=== PATIENT | female | born 1990 | race Caucasian/White ===

== ENCOUNTER 2024-04-09 12:39 | Outpatient (AMB) | payer OTHER, SELFPAY ==
--- NOTE | 2024-04-09 12:48 | AM.OFFWIN_ITS ---
Intake Vital Signs 04/09/24 12:49 Height 5 ft 5 in Weight 127 lb 4 oz BMI 21.2 BP 108/66 Blood Pressure Location Rt brachial Position Sitting Respiration 13 Pulse 81 Pulse Source Pulse Oximeter Temp 98 F Temp Source Temporal Artery Scan Pulse Oximetry (%) 99 Oxygen Delivery Method Room Air Intake Visit Reasons: palliative senior np/ sore throat, cough Patient Tobacco Use Status: Never used Tobacco Supervisor Slate Splitting Required: No Accompanied by: Self / Same As Patient Allergies Seasonal Allergies Allergy (Intermediate, Verified 04/09/24 13:09) Watery Eye Medication List - Last Reconciled 04/09/24 by ORQUIDEA Coombs No Known Home Meds Do you need a note to return to daycare/school/sports/work: No HPI HPI Comments History of Present Illness Details Here today with c/o sore throat, feeling generally run down Exposed to with similar sx reports negative for strep + cough, elevated heart rate , painful s wallowing at home COVID test negative Used nyquil and allergy meds w/ little relief sx started 3 days ago, worse since onset Hx of SVT and PVC s/p PFO repair; denies chest pain PFSH Social History Patient Tobacco Use Status: Never used Tobacco Review of Systems Const All systems reviewed & are unremarkable except as noted in HPI and below Physical Exam Vital Signs: Last Vital Signs Temp 98 F 04/09/24 12:49 Pulse 81 04/09/24 12:49 Resp 13 04/09/24 12:49 BP 108/66 04/09/24 12:49 Pulse Ox 99 04/09/24 12:49 Oxygen Delivery Method Room Air 04/09/24 12:49 BMI result Body Mass Index 21.2 Const Other: awake alert NAD TM intact and clear bilat Pharynx clear. STREP negative. 2/6 systolic murmur, frequent PVC LS CTAB No edema BLE Neuros intact Results AMB Rapid Strep AMB Rapid Strep Negative Last Edit by ORQUIDEA Coombs on 4 19:36 Assessment & Plan Assessment & Plan (1) PVC (premature ventricular contraction): Code(s): I49.3 - Ventricular premature depolarization Plan: . (2) URI (upper respiratory infection): Code(s): J06.9 - Acute upper respiratory infection, unspecified Qualifiers: URI type: acute pharyngitis Pharyngitis/tonsillitis etiology: unspecified etiology Qualified Code(s): J02.9 - Acute pharyngitis, unspecified Plan: 30 min spent caring for this patient before,during and after. Orders: Orders SARS-CoV2/FLU/RSV Today R09.89 - Other specified symptoms and signs involving the circulatory and respiratory systems AMB Rapid Strep Screen Today Z13.9 - Encounter for screening, unspecified Patient Instructions: Viral swab obtained today, results pending at this time she will be called with + results only supportive care FU with PCP next week re: PVC Avoid stimulant and caffeine Coding Level of Care Code Est Pt Level 4 (46328) Diagnoses PVC (premature ventricular contraction) I49.3 Acute pharyngitis, unspecified etiology J02.9 URI type: acute pharyngitis Pharyngitis/tonsillitis etiology: unspecified etiology
[2024-04-09 12:49] VITALS: BP 108/66; PULSE 81; RESP 13; TEMP 36.6; O2SAT 99; BMI 21.2
== END 2024-04-09 13:24 | disposition home or self-care (01) ==
PROVIDERS: PCP Pediatrics; Visit Provider Nurse Practitioner Family
DX: I49.3 Ventricular premature depolarization (principal); J02.9 Acute pharyngitis, unspecified; Z13.9 Encounter for screening, unspecified
CPT/HCPCS: 87880; 99214

== ENCOUNTER 2024-04-09 12:39 | Outpatient (REF) | payer OTHER, SELFPAY ==
[2024-04-10 12:20] LABS: Influenza A PCR NEGATIVE (Negative); Influenza B PCR NEGATIVE (Negative); Resp Syncy Virus RNA Qual PCR NEGATIVE (Negative); SARS COV2 PCR INHOUSE NEGATIVE (Negative)
== END 2024-04-09 12:40 | disposition home or self-care (01) ==
LOC: HO.LNP 12:39
PROVIDERS: Visit Provider Nurse Practitioner Family
DX: R09.89 Other specified symptoms and signs involving the circulatory and respiratory systems (principal)
CPT/HCPCS: 0241U

== ENCOUNTER 2024-04-16 14:24 | Outpatient (AMB) | payer OTHER, SELFPAY ==
--- NOTE | 2024-04-16 14:30 | A.OFFPC_ITS ---
Vital Signs 04/16/24 14:34 Height 5 ft 5 in Weight 128 lb 4 oz BMI 21.3 BP 102/68 Blood Pressure Location Lt brachial Position Sitting Respiration 14 Pulse 90 Pulse Source Pulse Oximeter Temp 98.1 F Temp Source Oral Pulse Oximetry (%) 95 Oxygen Delivery Method Room Air Intake Visit Reasons: w/ Cinthia 30 min FU PVC and URI Intake Note: F/U on PVC and URI. Is last menstrual period known: Yes Last menstrual period: 03/30/24 Allergies Seasonal Allergies Allergy (Intermediate, Verified 04/16/24 14:30) Watery Eye Medication List - Last Reconciled 04/16/24 by Cinthia Velazquez PA-C No Known Home Meds Tobacco use date assessed: 04/16/24 Dental Screening Dental Screen Date: 04/16/24 Did you have a dental visit in the last 12 months?: Yes Did you have a dental problem in the last 6 months where you did not have access to dental care?: No Was dental information given to patient?: Patient has dentist HPI w/ Cinthia 30 min FU PVC and URI HPI Details Patient is a 33-year-old female who [facility]. She is transferring from [facility]. She was recently seen here in the walk-in clinic for a URI. She states that still has a sinus pain and pressure. Intermittent right ear discomfort. She was seen in urgent care about a week ago and diagnosed with a viral URI. She states that it has been about 10 days now and she thinks she has just not getting better. No fevers or chills. No cough. She was experiencing more frequent PVCs when she 1st started to get sick but this has since resolved. No PVCs since Saturday. CV: She has a significant past medical history of paroxysmal SVT and PVC s/p PFO repair; denies chest pain. She does still get episodes of SVT if she is too active. She does not drink caffeine. She states that she thinks that she is ready to discuss a cardiac ablation. She would like a referral to EP. Her last Holter monitor was a couple years ago. She states that her last echo was last year and normal. Psych: Her anxiety is currently a bit flared up because her dog is dealing with cancer. She would really like a sleep study and to see sleep medicine. She wonders if her lack of sleep triggers her SVT as well. She wears a ring that tells her sometimes she is only getting 23 minutes of REM sleep in the night. She is up frequently at night and sometimes has a hard time falling asleep and staying asleep. In the past she has tried trazodone and amitriptyline but did not like how they made her feel. She states that she is very sensitive to medications and does not really want to take anything strong but would like to sleep. [facility] Medical History (Updated 04/16/24 @ 15:23 by Cinthia Velazquez PA-C) Fatigue Insomnia PSVT (paroxysmal supraventricular tachycardia) Family History (Updated 04/16/24 @ 14:50 by SMA Samm) Father Substance abuse HTN (hypertension) High blood cholesterol Mother Asthma Maternal Grandmother Diabetes Brother Testicular cancer Social History Housing: House Patient Tobacco Use Status: Never used Tobacco e-Cigarette/Vaping Use: Never Used service: No Current occupational status: employed Current occupational exposures/hazards: No Cognitive needs: No Hearing needs: No Vision needs: No Female Reproductive History Menstrual Date of last menstrual period: 03/30/24 Questionnaire PHQ-9 Over the last 2 weeks, how often have you been bothered by any of the following problems? 1. Little interest or pleasure in doing things: nearly every day 2. Feeling down, depressed, or hopeless: more than half the days 3. Trouble falling or staying asleep, or sleeping too much: nearly every day 4. Feeling tired or having little energy: more than half the days 5. Poor appetite or overeating: nearly every day 6. Feeling bad about yourself - or that you are a failure or have let yourself or your family down: not at all 7. Trouble concentrating on things, such as reading the newspaper or watching television: nearly every day 8. Moving or speaking so slowly that other people could have noticed. Or the opposite - being so fidgety or restless that you have been moving around a lot more than usual: not at all 9. Thoughts that you would be better off or of hurting yourself in some way: not at all Total score: 16 20973 - PHQ-9 Billing: Yes Source: Developed by Drs. Shalom Russell, Mike Arredondo and colleagues, with an educational padilla from [employer]. Thrive Questionnaire Date Thrive assessed: 04/16/24 I am a: Patient What is your living situation today?: I have a steady place to live Within the past 12 months, did the food you bought not last and you didn't have the money to get more?: Never true Within the past 12 months, did you worry whether your food would run out before you got money to buy more?: Never true Do you have trouble paying for medicines?: No Do you have trouble getting transportation to medical appointments?: No Do you have trouble paying your heating and electricity bill?: No Do you have trouble taking care of your child, family member or friend?: No Do you have trouble with day-to-day activities such as bathing, preparing meals, shopping, managing finances, etc.?: No Are you currently unemployed and looking for a job?: No Are you interested in more education?: No Please select the resources that you would like help with: None THRIVE Score: 0 AUDIT C Alcohol Use Questionnaire (AUDIT-C) 1. How often do you have a drink containing alcohol?: Never Total Score: 0 RITA-7 AMB Questionnaire RITA-7 Date RITA - 7 assessed: 04/16/24 Feeling nervous, anxious, or on edge: 3 = Nearly every day Not being able to stop or control worryin = Nearly every day Worrying too much about different things: 3 = Nearly every day Trouble relaxin = More than half the days Being so restless that it is hard to sit still: 0 = Not at all Becoming easily annoyed or irritable: 3 = Nearly every day Feeling afraid as if something awful might happen: 3 = Nearly every day Total RITA-7 score (0-4 normal; 5-9 mild; 10-14 moderate; 15-21 severe): 17 Source: Developed by Drs. Shalom Russell, Mike Arredondo and colleagues, with an educational padilla from [employer]. RITA-7 Assessment Billing RITA-7 Assessment Tool: RITA-7 Assessment 33053 ACT Questionnaire In the past 4 weeks, how much of the time did your asthma keep you from getting as much done at work, school or at home?: None of the time During the past 4 weeks, how often have you had shortness of breath?: Once a day During the past 4 weeks, how often did your asthma symptoms wake you up at night or earlier than usual in the morning?: Not at all During the past 4 weeks, how often have you had to use your rescue inhaler or nebulizer medication?: 2-3 times a week How would you rate your asthma control during the past 4 weeks?: Somewhat controlled Score: 18 Physical exam (Primary Care) Vital Signs: Last Vital Signs Temp 98.1 F 04/16/24 14:34 Pulse 90 04/16/24 14:34 Resp 14 04/16/24 14:34 BP 102/68 04/16/24 14:34 Pulse Ox 95 04/16/24 14:34 Oxygen Delivery Method Room Air 04/16/24 14:34 BMI result Body Mass Index 21.3 Tobacco/Smoking Status: Tobacco use Status Tobacco use date assessed 04/16/24 04/16/24 14:40 Patient Tobacco Use Status Never used Tobacco 04/16/24 14:34 e-Cigarette/Vaping Use Never Used 04/16/24 14:34 PHQ-9: PHQ-9 Score PHQ-9: Total score 16 04/16/24 14:44 Thrive Assessment: Date of Thrive Assessment Date Thrive assessed 04/16/24 04/16/24 14:44 Const Orientation/consciousness: patient oriented x3 HENMT Other: The right TM is dome-shaped with a small air-fluid level. TM on left WNL. There is maxillary and frontal sinus tenderness present. Nasal mucosa erythematous and edematous. No nasal drainage. Posterior oropharynx WNL. Ears: hearing grossly normal bilaterally Neck Thyroid: Thyroid normal Lymphatic: no lymphadenopathy noted Resp Auscultation: clear to auscultation bilaterally Cardio Rate: regular rate Rhythm: regular rhythm Heart sounds: S1 normal heart sound present and S2 normal heart sound present GI Inspection: Yes normal to inspection Palpation (GI): Soft to palpation and Other GI palpation findings present (nontender, no cva tenderness) Auscultation: normoactive bowel sounds Rectal Exam - Female: deferred Skin General skin exam: no rashes or lesions noted Neuro General: patient oriented x3, gait normal and no focal motor deficits Assessment and Plan Assessment & Plan (1) PVC (premature ventricular contraction): Code(s): I49.3 - Ventricular premature depolarization Plan: Improved. (2) PSVT (paroxysmal supraventricular tachycardia): Code(s): I47.10 - Supraventricular tachycardia, unspecified Plan: Referral to EP. Longstanding history of this and does not tolerate medication. (3) Insomnia: Code(s): G47.00 - Insomnia, unspecified Qualifiers: Insomnia type: unspecified Qualified Code(s): G47.00 - Insomnia, unspecified Plan: We will try hydroxyzine. Referral to sleep Medicine. Labs ordered. (4) Fatigue: Code(s): R53.83 - Other fatigue Qualifiers: Fatigue type: chronic, unspecified Qualified Code(s): R53.82 - Chronic fatigue, unspecified Plan: Labs ordered. Likely related to lack of good sleep. Sleep hygiene reviewed. Plan Patient we will follow up in 3 months. Sooner if needed. Patient understands and agrees with the plan. Orders: Orders Comprehensive Dexter. Panel Fast Today G47.00 - Insomnia, unspecified, I47.10 - Supraventricular tachycardia, unspecified, I49.3 - Ventricular premature depolarization, R53.83 - Other fatigue Complete Blood Count Auto Diff Today G47.00 - Insomnia, unspecified, I47.10 - Supraventricular tachycardia, unspecified, I49.3 - Ventricular premature depolarization, R53.83 - Other fatigue Lipid Panel Today G47.00 - Insomnia, unspecified, I47.10 - Supraventricular tachycardia, unspecified, I49.3 - Ventricular premature depolarization, R53.83 - Other fatigue TSH reflex Free T4 Today G47.00 - Insomnia, unspecified, I47.10 - Supraventricular tachycardia, unspecified, I49.3 - Ventricular premature depolarization, R53.83 - Other fatigue IRON PROFILE Today G47.00 - Insomnia, unspecified, I47.10 - Supraventricular tachycardia, unspecified, I49.3 - Ventricular premature depolarization, R53.83 - Other fatigue Ferritin Today G47.00 - Insomnia, unspecified, I47.10 - Supraventricular tachycardia, unspecified, I49.3 - Ventricular premature depolarization, R53.83 - Other fatigue Referrals Cardiac Electrophysiology Referral I47.10 - Supraventricular tachycardia, unspecified, I49.3 - Ventricular premature depolarization Sleep Medicine Referral G47.00 - Insomnia, unspecified, I47.10 - Supraventricular tachycardia, unspecified, R53.83 - Other fatigue Medications: New amoxicillin-pot clavulanate 875-125 mg 1 tab PO Q12H 20 tabs 0RF hydroxyzine HCl 25 mg PO BEDTIME 30 tabs 2RF Coding Level of Care Code Est Pt Level 4 (63847) Complex EM visit Add On G2211 Diagnoses PVC (premature ventricular contraction) I49.3 PSVT (paroxysmal supraventricular tachycardia) I47.10 Insomnia, unspecified type G47.00 Insomnia type: unspecified Chronic fatigue R53.82 Fatigue type: chronic, unspecified Additional Codes RITA-7 Assessment Billing - RITA-7 Assessment Tool: RITA-7 Assessment 12857 ([id number])
[2024-04-16 14:34] VITALS: BP 102/68; PULSE 90; RESP 14; TEMP 36.7; O2SAT 95; BMI 21.3
== END 2024-04-16 15:15 | disposition home or self-care (01) ==
PROVIDERS: PCP Pediatrics; Visit Provider Physician Assistant
DX: I49.3 Ventricular premature depolarization (principal); I47.10 Supraventricular tachycardia, unspecified; G47.00 Insomnia, unspecified; R53.82 Chronic fatigue, unspecified
CPT/HCPCS: 99214; G2211

== ENCOUNTER 2024-08-13 15:23 | Outpatient (AMB) | payer OTHER, SELFPAY ==
--- NOTE | 2024-08-13 15:26 | A.OFFVIS_ITS ---
Vital Signs 08/13/24 15:27 Height 5 ft 5 in Weight 133 lb 2 oz BMI 22.2 BP 106/68 Blood Pressure Location Rt brachial Position Sitting Respiration 16 Pulse 87 Pulse Source Pulse Oximeter Pulse Oximetry (%) 98 Oxygen Delivery Method Room Air Intake Visit Reasons: INP- Insomia Intake Note: New pt presents to the office for consultation for insomnia. Manager Of Planning Required: No Allergies Seasonal Allergies Allergy (Intermediate, Verified 08/13/24 15:27) Watery Eye Medication List - Last Reconciled 08/13/24 by Kera Brantley MD magnesium oxide 250 mg PO DAILY HPI Comments Details: 33y/o female comes for sleep evaluation . Main complaints-excessive daytime sleepiness, difficulty sleeping at night worse in the past 10 years. she has h/o ADHD but does not like taking medications. Sleep questionnaire- Difficulty falling asleep-yes Difficulty staying asleep-sometimes Number of arousals-no Snoring-yno Witnessed apneas-no Gasping arousals-no Nocturia-no GERD-no Vivid dreams-yes- wakes up dreaming- sad or happy Acting out dreams -no Abnormal behavior in sleep-no ABnormal movements in sleep-when she is trying to fall asleep is very twitchy Morning headaches- Excessive daytime sleepiness-yes Daytime naps- 0-1 nap lasting 2 hrs restless legs- no Hallucinations- yes- intruder when she wakes up from a nap sleep paralysis- yes- wakes up and unable to move usually during naps Drop attacks- no Sleep study-no Sleep Hygiene- Sleep time- 11pm Wake time -8am( can sleep till noon) coffee/stimulant use-0-3 coffees Phone Electronics use-Tv at night Exercise- Mostly 9am Bedroom comfort- good SHe takes magnesium at bed time SHe has h/o depression and anxiety she had difficulty in high school - needed IEP but did Ok in college . Her father has sleep apnea and is on CPAP. COUNTS INCLUDE 234 BEDS AT THE [facility] Medical History (Updated 08/13/24 @ 15:57 by Kera Brantley MD) Hypnopompic hallucination Abnormal leg movement Sleep paralysis Hypersomnia Fatigue Insomnia PSVT (paroxysmal supraventricular tachycardia) Family History Father Substance abuse HTN (hypertension) High blood cholesterol Mother Asthma Maternal Grandmother Diabetes Brother Testicular cancer Social History Housing: House Patient Tobacco Use Status: Never used Tobacco e-Cigarette/Vaping Use: Never Used service: No Current occupational status: employed Current occupational exposures/hazards: No Cognitive needs: No Hearing needs: No Vision needs: No Physical Exam Vital Signs: Last Vital Signs Pulse 87 08/13/24 15:27 Resp 16 08/13/24 15:27 BP 106/68 08/13/24 15:27 Pulse Ox 98 08/13/24 15:27 Oxygen Delivery Method Room Air 08/13/24 15:27 BMI result Body Mass Index 22.2 Const General: cooperative, healthy appearing and comfortable Nutritional Appearance: average body habitus Orientation/consciousness: patient oriented x3 Eyes Pupils: Equal, round and reactive pupils present Neuro Other: mallampatti grade 4 General: patient oriented x3, gait normal, tone normal, moves all extremities and no focal motor deficits Cranial nerves: Yes Facial sensation intact/muscles of mastication intact, Yes Equal, round and reactive pupils present, Yes Bilaterally intact EOM present, Yes Nystagmus not present, Yes Normal facial strength present, Yes Midline tongue present, Yes Symmetric palate elevation present and Yes Ability to bilaterally elevate shoulders present Cognition (Neuro): normal cognition Gait exam (Neuro): Normal gait present Motor exam (neuro): 5/5 motor strength present throughout and Normal motor muscle tone present throughout Deep tendon reflexes (DTR's): Right triceps reflex intensity grade: 2+, Left triceps reflex intensity grade: 2+, Rt Biceps (C5, C6): 2+, Left biceps reflex intensity grade: 2+, Right brachioradialis reflex intensity grade: 2+, Left brachioradialis reflex intensity grade: 2+, Right patellar reflex intensity grade: 2+ and Left patellar reflex intensity grade: 2+ Coordination: [id number] test normal Assessment & Plan Assessment & Plan (1) Hypersomnia: Code(s): G47.10 - Hypersomnia, unspecified Category: Medical (2) Sleep paralysis: Code(s): G47.8 - Other sleep disorders Category: Medical (3) Abnormal leg movement: Code(s): G25.9 - Extrapyramidal and movement disorder, unspecified Category: Medical (4) Hypnopompic hallucination: Code(s): R44.2 - Other hallucinations Category: Medical Plan High suspicion for narcolepsy I will schedule her for PSG followed by MSLT Orders: Orders RT PSG in-lab sleep study Today G25.9 - Extrapyramidal and movement disorder, unspecified, G47.10 - Hypersomnia, unspecified, G47.8 - Other sleep disorders, R44.2 - Other hallucinations Vitamin B12 and Folate Today G47.10 - Hypersomnia, unspecified Vitamin D 25-OH (D2 and D3) Today G47.10 - Hypersomnia, unspecified RT sleep testing - MSLT Today G25.9 - Extrapyramidal and movement disorder, unspecified, G47.10 - Hypersomnia, unspecified, G47.8 - Other sleep disorders, R44.2 - Other hallucinations Coding Level of Care Code New Pt Level 4 (99652) Complex EM visit Add On G2211 Diagnoses Hypersomnia G47.10 Sleep paralysis G47.8 Abnormal leg movement G25.9 Hypnopompic hallucination R44.2 [place] Sleepiness Scale Questions Sitting and reading: high chance of dozing Watching TV: slight chance of dozing Sitting inactive in a theater, movie etc.: slight chance of dozing As a passenger in a car for an hour without break: high chance of dozing Lying down in the afternoon when circumstances permit: high chance of dozing Sitting and talking to someone: slight chance of dozing Sitting quietly after lunch without alcohol: high chance of dozing In a car, while stopped for a few minutes in the traffic: moderate chance of dozing ESS < 10: normal, ESS > 12: pathologic: 17
[2024-08-13 15:27] VITALS: BP 106/68; PULSE 87; RESP 16; O2SAT 98; BMI 22.2
== END 2024-08-13 16:02 | disposition home or self-care (01) ==
PROVIDERS: PCP Physician Assistant; Visit Provider Psychiatry & Neurology Neurology
DX: G47.10 Hypersomnia, unspecified (principal); G47.8 Other sleep disorders; G25.9 Extrapyramidal and movement disorder, unspecified; R44.2 Other hallucinations
CPT/HCPCS: 99204

== ENCOUNTER → 2024-08-13 15:23 | Outpatient (BNVA) | payer OTHER, SELFPAY | PROVIDERS: PCP Physician Assistant; Visit Provider Psychiatry & Neurology Neurology ==

== ENCOUNTER 2024-08-18 08:35 | Outpatient (REF) | payer OTHER, SELFPAY ==
[2024-08-18 10:47] LABS: MANUAL DIFF FLAG NO
[2024-08-18 11:00] LABS: Basophils Absolute Auto 0.1 X10*3/uL (0.0-0.2); Basophils Percent Auto 0.9 % (0-2); Eosinophils Absolute Auto 0.2 X10*3/uL (0.0-0.4); Eosinophils Percent Auto 4.2 % (0-4); Hematocrit 37.9 % (37.0-47.0); Hemoglobin 12.6 g/dl (12.0-16.0); Imm Gran Abs Auto 0.01 X10*3/uL (0.00-0.03); Imm Gran Pct Auto 0.2 % (0.0-0.4); Lymphocytes Percent Auto 37.1 % (20-40); Mean Corpuscular HGB Conc 33.2 g/dl (31.0-35.0); Mean Corpuscular Hemoglobin 30.4 pg (27.0-33.0); Mean Corpuscular Volume 91.5 fL (80.0-98.0); Mean Platelet Volume 9.7 fL (9.4-12.3); Monocytes Absolute Auto 0.4 X10*3/uL (0.1-1.2); Monocytes Percent Auto 7.4 % (2-11); Neutrophils Absolute Auto 2.7 x10*3/uL (2.0-8.3); Neutrophils Percent Auto 50.2 % (45-73); Platelet Count 281 X10*3/uL (160-400); Red Blood Count 4.14 X10*6/uL (4.20-5.50); Red Cell Distribution Width 12.7 % (11.0-16.0); White Blood Count 5.3 X10*3/uL (4.8-10.8)
[2024-08-18 11:35] LABS: Albumin Level 4.2 g/dL (3.5-5.0); Alkaline Phosphatase 38 U/L (39-117); Anion Gap 10 (12-20); Aspartate Amino Transferase 17 U/L (5-31); Bilirubin Total 0.6 mg/dL (0.0-1.0); Blood Urea Nitrogen 14 mg/dL (9-16); Calcium 8.9 mg/dL (8.4-10.2); Carbon Dioxide 23 mmol/L (22-29); Chloride 112 mmol/L (96-108); Cholesterol 142 mg/dL (<200); Estimated Glomerular Filt Rate > 60; Glucose Fasting 96 mg/dL (60-99); HDL Cholesterol 67 mg/dL (>40); Iron 98 mcg/dL (30-160); LDL Cholesterol Calculated 68 mg/dL (<100); Percent Iron Saturation 41 % (15-50); Potassium 3.9 mmol/L (3.3-5.1); Sodium 141 mmol/L (135-145); Total Iron Binding Capacity 237 mcg/dL (228-428); Triglycerides 38 mg/dL (<150); Unsaturated Iron Binding 139 ug/dL
[2024-08-18 11:46] LABS: Ferritin 83 ng/mL (10-122); Folate 7.4 ng/mL (> or = 4.0); TSH reflex Free T4 1.01 uIU/mL (0.32-4.0); Vitamin B12 460 pg/mL (200-900)
[2024-08-18 11:58] LABS: Alanine Aminotransferase 15 U/L (0-31)
[2024-08-23 15:28] LABS: Vitamin D 25-OH, D2 <4 ng/mL; Vitamin D 25-OH, D3 25 ng/mL; Vitamin D 25-OH, Total 25 ng/mL (30-100)
== END 2024-08-18 08:36 | disposition home or self-care (01) ==
LOC: HO.WFDLDS 08:35
PROVIDERS: Referring Provider Psychiatry & Neurology Neurology; Visit Provider Physician Assistant
DX: R53.83 Other fatigue (principal); G47.00 Insomnia, unspecified; I47.10 Supraventricular tachycardia, unspecified; I49.3 Ventricular premature depolarization; G47.10 Hypersomnia, unspecified
CPT/HCPCS: 36415; 80053; 80061; 82306; 82607; 82728; 82746; 83540; 84443; 85025

== ENCOUNTER → 2024-08-19 14:41 | Outpatient (BNVA) | payer OTHER, SELFPAY | PROVIDERS: PCP Physician Assistant; Visit Provider Physician Assistant ==

== ENCOUNTER 2024-08-31 12:36 | Outpatient (AMB) | payer OTHER, SELFPAY ==
--- NOTE | 2024-08-31 12:38 | MHC.OFFWIV ---
Intake Vital Signs 08/31/24 12:44 Height 5 ft 5 in Weight 131 lb 4 oz BMI 21.8 BP 114/60 Blood Pressure Location Rt brachial Position Sitting Respiration 16 Pulse 86 Pulse Source Pulse Oximeter Temp 97.6 F Temp Source Oral Pulse Oximetry (%) 97 Oxygen Delivery Method Room Air Intake Visit Reasons: Sinus infection Intake Note: patient here c/o sinus infection Patient Tobacco Use Status: Never used Tobacco Septic Tank Cleaner Required: No Is last menstrual period known: Yes Last menstrual period: 08/26/24 Post menopausal: No Patient : No Allergies No Known Allergies Allergy (Verified 08/31/24 12:46) Do you need a note to return to daycare/school/sports/work: Yes HPI HPI Comments History of Present Illness Details 34-year-old female presents with complaints pressure in her sinuses, frontal headache, nasal congestions, bilat ear congestion and non-productive cough (worse at night). Her symptoms have been ongoing for the past 5 days and progressively worsened. She had associated fever with highest temp of 101 and sore through that completely subsided. She took Ibuprofen yesterday. No dyspnea or chest pain. She notes positive sick contacts. [facility] Social History Patient Tobacco Use Status: Never used Tobacco Patient : No Female Reproductive History Menstrual Date of last menstrual period: 08/26/24 Review of Systems Const Details: Denies chills, Denies fatigue, Denies fever(s), Reports headache(s) and Denies weakness ENT Reports as per HPI Cardiac Denies chest pain, Denies claudication, Denies leg edema, Denies lightheadedness, Denies palpitations, Denies dyspnea, Denies dyspnea on exertion, Denies orthopnea and Denies other (Loss of consciousness) Resp Reports cough, Denies excessive phlegm production, Denies dyspnea, Denies dyspnea on exertion, Denies snoring and Denies wheezing Physical Exam Const Other: General: comfortable and no acute distress Orientation/consciousness: patient oriented x3 ENT Head is normocephalic Bilateral ear canal and TM are normal Nasal turbinates with significant erythema Oropharynx are pink and moist Maxillary sinus tenderness with palpation No auricular or cervical lymphadenopathy Chest Chest palpation & inspection: normal inspection of the chest Resp Auscultation: clear to auscultation bilaterally Cardiac Palpation: normal PMI Heart sounds: S1 normal heart sound present, S2 normal heart sound present, no gallops, no murmur, no rubs Assessment & Plan Assessment & Plan (1) Viral upper respiratory illness: Code(s): J06.9 - Acute upper respiratory infection, unspecified Plan: Maxillary sinus tenderness with palpation. Nasal turbinates with significant erythema Likely viral illness though possibly allergies Superimposed bacterial infection is also likely Viral illness There is no antibiotic medication for viruses.? They must run their course.? Most average 5-7 days but 7-10 days is not uncommon and up to 14 days is still possible.? A cough is often the last symptom to resolve and this can last for weeks in some cases. Rest Hydrate well -? Drink plenty of fluids.? Especially water. Tylenol or ibuprofen for muscle aches, headache, fever/discomfort Z-Binu as prescribed Cannot rule out COVID-19/RSV/Flu infection Nasal swab acquired and will be sent to the lab Return for new or worsening symptoms Verbalized understanding and agreed with treatment plan. (2) Sinus infection: Code(s): J32.9 - Chronic sinusitis, unspecified Plan: Plan as above Orders: Orders SARS-CoV2/FLU/RSV Today J06.9 - Acute upper respiratory infection, unspecified, J32.9 - Chronic sinusitis, unspecified Coding Level of Care Code New Pt Level 3 (55754) Diagnoses Viral upper respiratory illness J06.9 Sinus infection J32.9
[2024-08-31 12:44] VITALS: BP 114/60; PULSE 86; RESP 16; TEMP 36.4; O2SAT 97; BMI 21.8
== END 2024-08-31 13:10 | disposition home or self-care (01) ==
PROVIDERS: PCP Physician Assistant; Visit Provider Nurse Practitioner Family
DX: J06.9 Acute upper respiratory infection, unspecified (principal); J32.9 Chronic sinusitis, unspecified

== ENCOUNTER 2024-08-31 12:36 | Outpatient (REF) | payer OTHER, SELFPAY ==
[2024-08-31 15:34] LABS: Influenza A PCR NEGATIVE (Negative); Influenza B PCR NEGATIVE (Negative); Resp Syncy Virus RNA Qual PCR NEGATIVE (Negative); SARS COV2 PCR INHOUSE NEGATIVE (Negative)
== END 2024-08-31 12:37 | disposition home or self-care (01) ==
LOC: HO.LAB 12:36
PROVIDERS: Nurse Practitioner Family; PCP Physician Assistant
DX: J06.9 Acute upper respiratory infection, unspecified (principal); J32.9 Chronic sinusitis, unspecified
CPT/HCPCS: 0241U

== ENCOUNTER 2025-02-08 13:49 | Outpatient (AMB) | payer OTHER, SELFPAY ==
--- NOTE | 2025-02-08 13:52 | A.OFFPC_ITS ---
Vital Signs 02/08/25 13:59 Height 5 ft 5 in Weight 125 lb 6 oz BMI 20.9 BP 100/60 Blood Pressure Location Rt brachial Position Sitting Respiration 16 Pulse 80 Pulse Source Pulse Oximeter Temp 98.1 F Temp Source Temporal Artery Scan Pulse Oximetry (%) 96 Oxygen Delivery Method Room Air Intake Visit Reasons: Fatigue, exp to mono Intake Note: patient here c/o feeling fatigue and she was exposed to mono Reservations Sales Supervisor Required: No Is last menstrual period known: Yes Last menstrual period: 01/27/25 Post menopausal: No Patient : No Allergies Seasonal Allergies Allergy (Intermediate, Verified 02/08/25 14:06) Watery Eye Medication List - Last Reconciled 02/08/25 by David Ríos CNP albuterol sulfate 90 mcg/actuation (Ventolin HFA) 2 puffs inhalation .Q4 hours PRN fluticasone propionate 220 mcg/actuation 1 puff inhalation BID magnesium glycinate 200 mg PO DAILY Tobacco use date assessed: 02/08/25 Dental Screening Dental Screen Date: 02/08/25 Did you have a dental visit in the last 12 months?: Yes Did you have a dental problem in the last 6 months where you did not have access to dental care?: No Was dental information given to patient?: Patient has dentist HPI HPI Comments History of Present Illness Details 34-year-old female presents with complai nts of sever fatigue, generalized body aches, and postnasal drip which have been ongoing for a week. Her stepdaughter recently tested positive for mono. Her vitamin D level was slightly low in August. She was prescribed vitamin D3 50 mcg which was not filled by the pharmacy due to health plan denial. She has been taking multivitamins that has vitamin D. She requests lab for mono even though she is educated that it is possible to experience mono symptoms again, although rare, however, it is unlikely to test positive twice. [facility] Medical History (Updated 09/01/24 @ 11:44 by Ruth Coe) Hypnopompic hallucination Abnormal leg movement Sleep paralysis Hypersomnia Fatigue Insomnia PSVT (paroxysmal supraventricular tachycardia) Family History Father Substance abuse HTN (hypertension) High blood cholesterol Mother Asthma Maternal Grandmother Diabetes Brother Testicular cancer Social History (System 09/01/24 @ 11:44 by Ruth Coe) Housing: House Patient Tobacco Use Status: Never used Tobacco e-Cigarette/Vaping Use: Never Used Second Hand Smoke Exposure: No service: No Current occupational status: employed Current occupational exposures/hazards: No Cognitive needs: No Hearing needs: No Vision needs: No Female Reproductive History Menstrual Date of last menstrual period: 01/27/25 Questionnaire PHQ-9 Over the last 2 weeks, how often have you been bothered by any of the following problems? 1. Little interest or pleasure in doing things: several days 2. Feeling down, depressed, or hopeless: not at all 3. Trouble falling or staying asleep, or sleeping too much: several days 4. Feeling tired or having little energy: several days 5. Poor appetite or overeating: several days 6. Feeling bad about yourself - or that you are a failure or have let yourself or your family down: not at all 7. Trouble concentrating on things, such as reading the newspaper or watching television: nearly every day 8. Moving or speaking so slowly that other people could have noticed. Or the opposite - being so fidgety or restless that you have been moving around a lot more than usual: not at all 9. Thoughts that you would be better off or of hurting yourself in some way: not at all Total score: 7 Source: Developed by Drs. Shalom Russell, Modesta Vargas, Mike Brito and colleagues, with an educational padilla from [employer]. Thrive Questionnaire Date Thrive assessed: 04/16/24 I am a: Patient What is your living situation today?: I have a steady place to live Within the past 12 months, did the food you bought not last and you didn't have the money to get more?: Never true Within the past 12 months, did you worry whether your food would run out before you got money to buy more?: Never true Do you have trouble paying for medicines?: No Do you have trouble getting transportation to medical appointments?: No Do you have trouble paying your heating and electricity bill?: No Do you have trouble taking care of your child, family member or friend?: No Do you have trouble with day-to-day activities such as bathing, preparing meals, shopping, managing finances, etc.?: No Are you currently unemployed and looking for a job?: No Are you interested in more education?: No Please select the resources that you would like help with: None Currently or been in a relationship where the following occur: No concerns reported THRIVE Score: 0 AUDIT C Alcohol Use Questionnaire (AUDIT-C) 1. How often do you have a drink containing alcohol?: Never Total Score: 0 RITA-7 AMB Questionnaire RITA-7 Date RITA - 7 assessed: 04/16/24 Feeling nervous, anxious, or on edge: 0 = Not at all Not being able to stop or control worryin = Not at all Worrying too much about different things: 0 = Not at all Trouble relaxin = Not at all Being so restless that it is hard to sit still: 0 = Not at all Becoming easily annoyed or irritable: 0 = Not at all Feeling afraid as if something awful might happen: 0 = Not at all Total RITA-7 score (0-4 normal; 5-9 mild; 10-14 moderate; 15-21 severe): 0 Source: Developed by Drs. Shalom Russell, Modesta Vargas, Mike Brito and colleagues, with an educational padilla from [employer]. Review of Systems Const Details: Const Denies chills, Reports fatigue, Denies fever(s), Denies headache(s) and Denies weakness ENT Denies dizziness and Denies headache(s) Card Denies chest pain, Denies lightheadedness, Denies dyspnea and Denies other (Palpitations) Resp Denies cough, Denies dyspnea, Denies wheezing and Denies other ( shortness of breath) GI Denies abdominal pain, Denies melena, Denies hematochezia, Denies change in bowel habits, Denies dyspepsia and Denies nausea Denies hematuria and Denies dysuria Musc Denies abnormal gait, Denies myalgias, Denies arthralgias, Denies numbness and Denies tingling Skin/Breast Denies rash, Denies unusual bruising and Denies wounds Neuro Denies abnormal gait, Denies dizziness, Denies headache(s), Denies memory loss, Denies numbness, Denies Sensory deficit (Neuro), Denies tingling and Denies weakness Psych Denies anxiety, Denies depression, Denies memory loss Endo Denies cold intolerance, Reports fatigue, Denies heat intolerance, Denies polydipsia and Denies polyuria Aller/Immun Denies wheezing Physical exam (Primary Care) Vital Signs: Last Vital Signs Temp 98.1 F 02/08/25 13:59 Pulse 80 02/08/25 13:59 Resp 16 02/08/25 13:59 BP 100/60 02/08/25 13:59 Pulse Ox 96 02/08/25 13:59 Oxygen Delivery Method Room Air 02/08/25 13:59 BMI result Body Mass Index 20.9 Tobacco/Smoking Status: Tobacco use Status Tobacco use date assessed 02/08/25 02/08/25 14:02 Patient Tobacco Use Status Never used Tobacco 02/08/25 13:54 e-Cigarette/Vaping Use Never Used 02/08/25 13:54 PHQ-9: PHQ-9 Score PHQ-9: Total score 7 02/08/25 13:54 Thrive Assessment: Date of Thrive Assessment Date Thrive assessed 04/16/24 02/08/25 13:54 Currently or been in a relationship where the following occur: No concerns reported Const Other: General: no acute distress and well developed Nutritional Appearance: well nourished Orientation/consciousness: patient oriented x3 HENMT Head is normocephalic Bilateral ear canal and TM are normal Nasal turbinates and oropharynx are pink and moist Sinuses are nontender with palpation No auricular or cervical lymphadenopathy Eyes General: appearance normal, both eyes and all related structures Pupils: Equal, round and reactive pupils present EOM: EOMs intact bilaterally Resp Effort & Inspection: normal respiratory effort Auscultation: clear to auscultation bilaterally Cardio Rate: regular rate Rhythm: regular rhythm Heart sounds: S1 normal heart sound present, S2 normal heart sound present, no gallops, no murmurs and no rubs GI Palpation (GI): No Abdominal aortic bruit present, Soft to palpation, nontender, No hepatosplenomegaly present and No Rebound tenderness present Auscultation: normal bowel sounds General: Yes no CVA tenderness Back/Spine/Pelvis Back: no CVA tenderness Cervical Spine: cervical ROM normal and No Cervical spine tenderness Thoracic/Lumbar Spine: thoraco-lumbar ROM normal, No pain with thoraco-lumbar ROM, No thoracic spinal tenderness and No lumbar spinal tenderness Extrem General: Yes normal to inspection, No edema and No calf tenderness Skin General: warm and dry. Normal skin color. Normal skin turgor Neuro General: patient oriented x3, gait normal and no focal neuro deficit Cranial nerves: Yes Equal, round and reactive pupils present Cognition (Neuro): normal cognition Gait exam (Neuro): Normal gait present Sensory Exam: No Sensory deficit (Neuro) Psych Appearance: grossly normal Affect: normal affect Attitude: cooperative Thought process: Normal thought process present Coding Level of Care Code Est Pt Level 3 (70756) Diagnoses Chronic fatigue R53.82 Fatigue type: chronic, unspecified Assessment & Plan Assessment & Plan (1) Fatigue: Code(s): R53.83 - Other fatigue Category: Medical Qualifiers: Fatigue type: chronic, unspecified Qualified Code(s): R53.82 - Chronic fatigue, unspecified Plan: Patient reports severe fatigue, generalized body aches, and postnasal drip which have been ongoing for a week. Positive mono contact Likely viral illness though possibly allergies Vitamin-D deficiency, anemia, and thyroid disorder also possible No exam evidence of bacterial infection Viral illness There is no antibiotic medication for viruses.? They must run their course.? Most average 5-7 days but 7-10 days is not uncommon and up to 14 days is still possible.? A cough is often the last symptom to resolve and this can last for weeks in some cases. Rest Hydrate well -? Drink plenty of fluids.? Especially water. Tylenol or ibuprofen for muscle aches, headache, fever/discomfort Cannot rule out COVID-19/RSV/Flu infection Nasal swab acquired and will be sent to the lab CBC, vitamin-D, and TSH labs ordered [place] lab ordered as requested Return for new or worsening symptoms Verbalized understanding and agreed with treatment plan. Orders: Orders Complete Blood Count Auto Diff Today R53.82 - Chronic fatigue, unspecified SARS-CoV2/FLU/RSV Today R53.82 - Chronic fatigue, unspecified Monotest Today R53.82 - Chronic fatigue, unspecified Vitamin D 25-OH Total Today R53.82 - Chronic fatigue, unspecified TSH reflex Free T4 Today R53.82 - Chronic fatigue, unspecified
[2025-02-08 13:59] VITALS: BP 100/60; PULSE 80; RESP 16; TEMP 36.7; O2SAT 96; BMI 20.9
--- OUTSIDE RECORDS SUMMARY | 2025-02-08 15:32 | XMS_ITS | Patient Health Record ---
Author Organization [employer] Address [address] [address] Support Name Relationship Address Phone INA BINGHAM Guarantor Unknown [phone] Reason For Referral No Information Medications Medication SIG (Take, Route, Frequency, Duration) Notes Start Date End Date Status Loestrin 11/30 (21) 1 MG 1 ORAL daily for -3 Frandy-MJ 2010 Active Plan Of Treatment No Information
--- OUTSIDE RECORDS SUMMARY | 2025-02-08 15:32 | XMS_ITS | Clinical Summary ---
Author Organization [facility] [facility] ity Address [address] [place] [address] Care Team Providers Care Word Processor Technician Name Role Phone Cinthia Velazquez Primary Care Provider [phone] Encounters Date Type Department Care Team Description 01/30/2025 Telephone [facility] [address] [place] [address] Cinthia Velazquez PA Referral ( Attempt to reach pt, no response. Aek) from Last 3 Months Social History Tobacco Use Types Packs/Day Years Used Date Smoking Tobacco: Never Assessed Comments Unknown Sex and Gender Information Value Date Recorded Sex Assigned at Not on file Legal Sex Female 11:40 AM EDT Gender Identity Not on file Sexual Orientation Not on file Plan of Treatment Health Maintenance Due Date Last Done Comments DTaP,Tdap,and Td Vaccines (1 - Tdap) 2008 Hepatitis B Vaccines (1 of 3 - 19+ 3-dose series) 2008 Cervical Cancer Screening: P ap Smear 2010 COVID-19 Vaccine (2023-2 5 season) 2024 Influenza Vaccine (#1) 2024 Depression Screening 08/24/2024 HIV Screening 08/24/2024 Hepatitis C Screening 08/24/2024 Social Influencers of Health Screening 08/24/2024 HIB Vaccines Aged Out No longer eligi ble based on patient's age to complete this topic HPV Vaccines Aged Out No longer eligi ble based on patient's age to complete this topic Hepatitis A Vaccines Aged Out No long er eligible based on patient's age to complete this topic IPV Vaccines Aged Out No longer eligi ble based on patient's age to complete this topic MMR Vaccines Aged Out No longer eligi ble based on patient's age to complete this topic Meningococcal ACWY Vaccine Aged Out N o longer eligible based on patient's age to complete this topic Meningococcal B Vacine Aged Out No lo nger eligible based on patient's age to complete this topic Pneumococcal Vaccine: Pediat rics (0 to 5 Years) and At-Risk Patients (6 to 64 Years) Aged Out No longer eligible b ased on patient's age to complete this topic RSV Immunization Patients Un prakash 20 months Aged Out No longer eligible b ased on patient's age to complete this topic Varicella Vaccines Aged Out No longer eligible based on patient's age to complete this topic Care Teams Word Processor Technician Relationship Specialty Start Date End Date Cinthia Velazquez PA [address] [place] [id number] PCP - General 04/25/24
== END 2025-02-08 14:24 | disposition home or self-care (01) ==
LOC: HO.HMCFM 13:49
PROVIDERS: PCP Physician Assistant; Visit Provider Nurse Practitioner Family
DX: R53.82 Chronic fatigue, unspecified (principal)

== ENCOUNTER 2025-02-08 13:49 | Outpatient (REF) | payer OTHER, SELFPAY ==
--- OUTSIDE RECORDS SUMMARY | 2025-02-08 16:16 | XMS_ITS | Clinical Summary ---
Author Organization [employer] [facility] ity Address [address] [place] [address] Care Team Providers Care Licensed Certified Orthotist Name Role Phone Cinthia Velazquez Primary Care Provider [phone] Encounters Date Type Department Care Team Description 01/30/2025 Telephone [facility] [address] [facility] [address] [place] [address] Cinthia Velazquez PA Referral ( [...] age to complete this topic Care Teams Licensed Certified Orthotist Relationship Specialty Start Date End Date Cinthia Velazquez PA [address] [place] [id number] PCP - General 04/25/24
[2025-02-08 18:59] LABS: Influenza A PCR NEGATIVE (Negative); Influenza B PCR NEGATIVE (Negative); Resp Syncy Virus RNA Qual PCR NEGATIVE (Negative); SARS COV2 PCR INHOUSE NEGATIVE (Negative)
== END 2025-02-08 13:50 | disposition home or self-care (01) ==
LOC: HO.LAB 13:49
PROVIDERS: PCP Physician Assistant; Visit Provider Nurse Practitioner Family
DX: R53.82 Chronic fatigue, unspecified (principal)
CPT/HCPCS: 0241U; 96127

== ENCOUNTER 2025-02-08 14:29 | Outpatient (REF) | payer OTHER, SELFPAY ==
[2025-02-08 17:56] LABS: MANUAL DIFF FLAG NO
[2025-02-08 18:17] LABS: Basophils Absolute Auto 0.1 X10*3/uL (0.0-0.2); Basophils Percent Auto 1.3 % (0-2); Eosinophils Absolute Auto 0.2 X10*3/uL (0.0-0.4); Eosinophils Percent Auto 2.1 % (0-4); Hematocrit 37.6 % (37.0-47.0); Hemoglobin 12.4 g/dl (12.0-16.0); Imm Gran Abs Auto 0.03 X10*3/uL (0.00-0.03); Imm Gran Pct Auto 0.4 % (0.0-0.4); Mean Corpuscular Hemoglobin 30.8 pg (27.0-33.0); Mean Corpuscular Volume 93.3 fL (80.0-98.0); Mean Platelet Volume 9.7 fL (9.4-12.3); Monocytes Absolute Auto 0.3 X10*3/uL (0.1-1.2); Monocytes Percent Auto 4.3 % (2-11); Neutrophils Absolute Auto 4.6 x10*3/uL (2.0-8.3); Neutrophils Percent Auto 63.9 % (45-73); Platelet Count 273 X10*3/uL (160-400); Red Blood Count 4.03 X10*6/uL (4.20-5.50); Red Cell Distribution Width 12.6 % (11.0-16.0); White Blood Count 7.2 X10*3/uL (4.8-10.8)
[2025-02-08 18:53] LABS: Monotest Negative (Negative)
== END 2025-02-08 14:30 | disposition home or self-care (01) ==
LOC: HO.WFDLDS 14:29
PROVIDERS: Visit Provider Nurse Practitioner Family
DX: R53.82 Chronic fatigue, unspecified (principal)
CPT/HCPCS: 36415; 82306; 84443; 85025; 86308

== ENCOUNTER 2025-05-27 09:20 | Outpatient (AMB) | payer BC, SELFPAY ==
--- NOTE | 2025-05-27 09:24 | A.OFFPC_ITS ---
Vital Signs 05/27/25 09:27 Height 5 ft 5 in Weight 125 lb 6 oz BMI 20.9 BP 92/64 Blood Pressure Location Lt brachial Position Sitting Respiration 12 Pulse 78 Pulse Source Pulse Oximeter Pulse Oximetry (%) 98 Oxygen Delivery Method Room Air Intake Visit Reasons: med check Intake Note: Medication follow up. Disucuss going on a medication for ADHD besides Adderall. Medication to heip with plane flights. Glass Breaker Required: No Allergies Seasonal Allergies Allergy (Intermediate, Verified 05/27/25 09:25) Watery Eye Medication List - Last Reconciled 05/27/25 by Cinthia Velazquez PA-C albuterol sulfate 90 mcg/actuation (Ventolin HFA) 2 puffs inhalation .Q4 hours PRN magnesium glycinate 200 mg PO DAILY Tobacco use date assessed: 02/08/25 Dental Screening Dental Screen Date: 02/08/25 HPI med check HPI Details Pt is a 34 y/o female who presents today for a follow up. She has a significant past medical history of PSVT, anxiety, depression and ADHD. CV: She has a significant past medical history of paroxysmal SVT and PVC s/p PFO repair; denies chest pain. Psych: She states that in the past while on Adderall she felt like she would feel tired after the Adderall and would like to try something instead of Adderall. She just started a new drop in his having a hard time concentrating. She is using short-acting Adderall as needed that she has left over. In the past we tried to get Vyvanse covered but her previous health insurance would not cover this. She is also flying and has a fear of this. She is requesting a short acting anti anxiety medication. In the past she was on clonazepam as needed for anxiety. She has always tolerated this well. [facility] Medical History (Updated 05/27/25 @ 09:53 by Cinthia Velazquez PA-C) Hypnopompic hallucination Abnormal leg movement Sleep paralysis Hypersomnia Fatigue Insomnia PSVT (paroxysmal supraventricular tachycardia) Family History Father Substance abuse HTN (hypertension) High blood cholesterol Mother Asthma Maternal Grandmother Diabetes Brother Testicular cancer Social History (System 09/01/24 @ 11:44 by Ruth Coe) Housing: House Patient Tobacco Use Status: Never used Tobacco e-Cigarette/Vaping Use: Never Used Second Hand Smoke Exposure: No service: No Current occupational status: employed Current occupational exposures/hazards: No Cognitive needs: No Hearing needs: No Vision needs: No Questionnaire Thrive Questionnaire Date Thrive assessed: 02/08/25 I am a: Patient What is your living situation today?: I have a steady place to live Within the past 12 months, did the food you bought not last and you didn't have the money to get more?: Never true Within the past 12 months, did you worry whether your food would run out before you got money to buy more?: Never true Do you have trouble paying for medicines?: No Do you have trouble getting transportation to medical appointments?: No Do you have trouble paying your heating and electricity bill?: No Do you have trouble taking care of your child, family member or friend?: No Do you have trouble with day-to-day activities such as bathing, preparing meals, shopping, managing finances, etc.?: No Are you currently unemployed and looking for a job?: No Are you interested in more education?: No Please select the resources that you would like help with: None Currently or been in a relationship where the following occur: No concerns reported THRIVE Score: 0 RITA-7 AMB Questionnaire RITA-7 Date RITA - 7 assessed: 04/16/24 Source: Developed by Drs. Shalom Russell, Modesta Vargas, Mike Brito and colleagues, with an educational padilla from [employer]. Physical exam (Primary Care) Tobacco/Smoking Status: Tobacco use Status Tobacco use date assessed 02/08/25 05/26/25 15:27 Patient Tobacco Use Status Never used Tobacco 05/26/25 15:27 e-Cigarette/Vaping Use Never Used 05/26/25 15:27 Thrive Assessment: Date of Thrive Assessment Date Thrive assessed 02/08/25 05/27/25 09:21 Currently or been in a relationship where the following occur: No concerns reported Const Orientation/consciousness: patient oriented x3 HENMT Ears: hearing grossly normal bilaterally Neck Thyroid: Thyroid normal Lymphatic: no lymphadenopathy noted Resp Auscultation: clear to auscultation bilaterally Cardio Rate: regular rate Rhythm: regular rhythm Heart sounds: S1 normal heart sound present and S2 normal heart sound present GI Inspection: Yes normal to inspection Palpation (GI): Soft to palpation and Other GI palpation findings present (nontender, no cva tenderness) Auscultation: normoactive bowel sounds Rectal Exam - Female: deferred Skin General skin exam: no rashes or lesions noted Neuro General: patient oriented x3, gait normal and no focal motor deficits Results Reviewed Results Reviewed: Laboratory Tests 08/18/24 02/08/25 08:37 14:31 WBC 7.2 RBC 4.03 L Hgb 12.4 Hct 37.6 Plt Count 273 Creatinine 0.85 Estimated GFR > 60 Fasting Glucose 96 AST 17 ALT 15 Triglycerides 38 Cholesterol 142 LDL Cholesterol, Calc 68 HDL Cholesterol 67 Coding Level of Care Code Est Pt Level 4 (37016) Complex EM visit Add On G2211 Diagnoses ADHD F90.9 Fear of flying F40.243 Assessment & Plan Assessment & Plan (1) ADHD: Code(s): F90.9 - Attention-deficit hyperactivity disorder, unspecified type Category: Medical Plan: We will try Vyvanse. Discussed risks and benefits and adverse effects of this medication. She will follow up in a few months to be reassessed. Sooner if needed. (2) Fear of flying: Code(s): F40.243 - Fear of flying Category: Medical Plan: One prescription of lorazepam was provided today. She does have a lot of travel with her new job and she will use this very sparingly. Discussed risks, benefits and adverse effects of this medication including sedation, dependence, addiction etc.. Medications: New lisdexamfetamine (Vyvanse) Partial Fill upon patient request. 30 mg PO QAM 30 caps 0RF lorazepam (Ativan) 0.5 mg PO BID PRN 30 tabs 0RF anxiety 30 days
[2025-05-27 09:27] VITALS: BP 92/64; PULSE 78; RESP 12; O2SAT 98; BMI 20.9
--- OUTSIDE RECORDS SUMMARY | 2025-05-27 09:38 | XMS_ITS | Patient Health Record ---
Author Organization [facility] Address [address] [address] Support Name Relationship Address Phone INA BINGHAM Guarantor Unknown [phone] Reason For Referral No Information Medications Medication SIG (Take, Route, Frequency, Duration) Notes Start Date End Date Status Loestrin 11/30 (21) 1 MG 1 ORAL daily; Duration: -3 Frandy-MJ 10/03/2011 Active Plan Of Treatment No Information
--- OUTSIDE RECORDS SUMMARY | 2025-05-27 09:38 | XMS_ITS | Clinical Summary ---
Author Organization [facility] ity Address [address] [place] [address] Care Team Providers Care Senior Recruitment Consultant Name Role Phone Cinthia Velazquez Primary Care Provider [phone] Social History Tobacco Use Types Packs/Day Years [...] 2010 COVID-19 Vaccine (2023-2 5 season) 2024 Depression Screening 08/24/2024 HIV Screening 08/24/2024 Hepatitis C Screening 08/24/2024 Social Influencers of Health Screening 08/24/2024 Influenza Vaccine (#1) 2025 HIB Vaccines Aged Out No longer eligi [...] age to complete this topic Meningococcal B Vaccine Aged Out No l onger eligible based on patient's age to complete this topic Pneumococcal Vaccine: Pediat rics (0 to 5 Years) and At-Risk Patients (6 to 49 Years) Aged Out No longer eligible b ased on patient's age to complete this topic RSV Immunization Patients Un prakash 20 months Aged Out No longer eligible b ased on patient's age to complete this topic Varicella Vaccines Aged Out No longer eligible based on patient's age to complete this topic Care Teams Senior Recruitment Consultant Relationship Specialty Start Date End Date Cinthia Velazquez PA [address] [place] [id number] PCP - General 04/25/24
== END 2025-05-27 09:57 | disposition home or self-care (01) ==
LOC: HO.HMCFM 09:21
PROVIDERS: PCP Physician Assistant; Visit Provider Physician Assistant
DX: F90.9 Attention-deficit hyperactivity disorder, unspecified type (principal); F40.243 Fear of flying

== ENCOUNTER 2025-09-10 14:42 | Outpatient (AMB) | payer BC, SELFPAY ==
--- NOTE | 2025-09-10 14:44 | A.OFFPC_ITS ---
Vital Signs 09/10/25 14:48 Height 5 ft 5 in Weight 123 lb 6 oz BMI 20.5 BP 101/68 Blood Pressure Location Rt brachial Position Sitting Respiration 12 Pulse 58 Pulse Source Pulse Oximeter Temp 97.2 F Temp Source Oral Pulse Oximetry (%) 99 Oxygen Delivery Method Room Air Intake Visit Reasons: persistent cough Intake Note: Patient c/o dry persistent cough and have a metal taste in her mouth. Research Methodologist Required: No Allergies Seasonal Allergies Allergy (Intermediate, Verified 09/10/25 15:02) Watery Eye Medication List - Last Reconciled 09/10/25 by Nadya Roldan, DIRECTOR [employer]- albuterol sulfate 90 mcg/actuation (Ventolin HFA) 2 puffs inhalation .Q4 hours PRN lisdexamfetamine (Vyvanse) 30 mg PO QAM lorazepam (Ativan) 0.5 mg PO BID PRN 30 days magnesium glycinate 200 mg PO DAILY Tobacco use date assessed: 09/10/25 Dental Screening Dental Screen Date: 09/10/25 Did you have a dental visit in the last 12 months?: Yes Did you have a dental problem in the last 6 months where you did not have access to dental care?: No Was dental information given to patient?: Patient has dentist HPI HPI Comments History of Present Illness Details Chief Complaint The patient is a 35-year-old female presenting with a persistent cough and post- tussive phlegm. History The patient is a 35-year-old female presenting with a cough. Acute Cough: - The patient developed a cough followin g a sinus infection that began approximately three weeks ago, for which she was treated with amoxicillin at a walk-in clinic. - Her symptoms initially improved, but a fter air travel, she felt she was back at [facility], though without facial pressure. - The cough is described as very dry but is also productive of phlegm, is worse at night, and is triggered by deep breaths, causing her to breathe shallowly. - She reports chest heaviness and a cons tant urge to cough, which is similar to her symptoms when she had pneumonia two years ago. - A nurse practitioner colleague fabio paredes auscultated her lungs and heard no fluid, subsequently providing her with a combivent inhaler. - The patient reports feeling lightheade d after using the inhaler and experiences a metallic taste with coughing. - She has been taking Robitussin without much effect and NyQuil to help with sleep, along with her regular allergy medications. - She reports significant fatigue but baez s continued going to the gym. - She notes that her symptoms are not re lated to her history of SVT and denies palpitations. Cerumen Impaction: - The patient reports a sensation of hav ing stuff in her ears which does not resolve with cleaning, more so on the R Past Medical History - Pneumonia two years ago - Supraventricular tachycardia (SVT) - Heart murmur - Allergies - Sinus infection three weeks prior, holly ated with amoxicillin Review of Systems - General: Reports significant fatigue. Denies fever since last Saturday. - Respiratory: Reports a persistent, beatriz y dry cough that is also productive of phlegm. Reports chest heaviness and an urge to cough. Reports shallow breathing to avoid triggering the cough, which is worse at night and with deep inspiration. - Cardiovascular: Denies palpitations or other cardiac symptoms. - ENT: Reports a sensation of fullness i n the ears that does not clear with cleaning. Reports a metallic taste associated with coughing. Denies facial pressure. - Neurological: Reports feeling lighthea ded after using her inhaler. Physical Exam General: Awake, alert. No apparent distress Eyes: Sclera and conjunctiva clear bilaterally Nose: Nares patent, turbinates within normal limits, no sinus tenderness with palpation bilaterally Ears: Tympanic membranes intact and clear on the left, right ear with wax obstructing view of eardrum Throat: Moist mucosa membrane, pharynx within normal limits Cardiovascular: Regular rate and rhythm Respiratory: Clear to auscultation bilaterally, no wheezing, crackles, or decreased sounds. Occassional dry cough w/o distress. Medical Decision Making The patient is a 35-year-old female presenting with a persistent, productive cough that began after a sinus infection three weeks ago and worsened after air travel. Her symptoms, including chest heaviness and a constant urge to cough, are concerning to her due to a history of pneumonia, but she denies any symptoms related to her history of SVT. Physical examination of the lungs is unremarkable, with clear breath sounds and no wheezes or crackles. The clinical picture is most consistent with a post-viral cough or acute viral bronchitis, possibly from a new viral pathogen acquired during her travels, as many such as enterovirus and rhinovirus are currently circulating. Given the likely viral etiology, antibiotics are not indicated. The plan is to manage her symptoms to improve comfort and sleep. She will continue the combination budesonide/albuterol inhaler for bronchial inflammation, with education that the associated lightheadedness is a known side effect and to use it in a safe setting. As mnmk-hak-rfbcful guaifenesin has not been effective, a prescription for benzonatate (Tessalon) will be provided for cough suppression during the day, which can be used in conjunction with NyQuil at night. Additionally, examination revealed cerumen impaction in the right ear, for which an in-office ear lavage was performed to allow for proper visualization of the tympanic membrane. Plan 1. Acute Cough - The patient's presentation is consiste nt with a post-viral cough or viral bronchitis, given the clear lung exam and history following a sinus infection. - Antibiotics are not indicated due to t he likely viral etiology. - Recommended to continue the albuterol/ budesonide combination inhaler for bronchial inflammation, with counseling on the potential side effect of lightheadedness and advice to use it in a safe environment. - Prescribed benzonatate (Tessalon) to e taken up to three times daily for cough suppression. - A refill for benzonatate was also prov ided. - The patient may continue using NyQuil at night to aid with sleep. 2. Cerumen Impaction, Right Ear - Examination revealed the right ear can al was occluded by cerumen, preventing visualization of the tympanic membrane. - A right ear lavage was performed in e office to clear the obstruction. Patient Instructions - Continue using your inhaler. Be aware that it may make you feel lightheaded, so use it in a place where you can sit down if needed. - A prescription for a non-drowsy cough medication, Tessalon, has been sent to your pharmacy. You can take this up to three times per day. - Do not take Tessalon at the same time as other cough medicines like DayQuil. - It is okay to continue taking NyQuil a t night to help you sleep. - Your prescription was sent to the [facility] in [place]. Consent The patient provided verbal consent for a right ear lavage to be performed in the office. Patient was informed and verbally consented to the use of an ambient scribe for clinic note documentation during this visit. [facility] Medical History (Updated 05/27/25 @ 09:53 by Cinthia Velazquez PA-C) Abnormal leg movement Fatigue Hypersomnia Hypnopompic hallucination Insomnia PSVT (paroxysmal supraventricular tachycardia) Sleep paralysis Family History Father Substance abuse HTN (hypertension) High blood cholesterol Mother Asthma Maternal Grandmother Diabetes Brother Testicular cancer Social History (System 09/01/24 @ 11:44 by Ruth Coe) Housing: House Patient Tobacco Use Status: Never used Tobacco e-Cigarette/Vaping Use: Never Used Second Hand Smoke Exposure: No service: No Current occupational status: employed Current occupational exposures/hazards: No Cognitive needs: No Hearing needs: No Vision needs: No Questionnaire Thrive Questionnaire Date Thrive assessed: 02/08/25 I am a: Patient What is your living situation today?: I have a steady place to live Within the past 12 months, did the food you bought not last and you didn't have the money to get more?: Never true Within the past 12 months, did you worry whether your food would run out before you got money to buy more?: Never true Do you have trouble paying for medicines?: No Do you have trouble getting transportation to medical appointments?: No Do you have trouble paying your heating and electricity bill?: No Do you have trouble taking care of your child, family member or friend?: No Do you have trouble with day-to-day activities such as bathing, preparing meals, shopping, managing finances, etc.?: No Are you currently unemployed and looking for a job?: No Are you interested in more education?: No Please select the resources that you would like help with: None Currently or been in a relationship where the following occur: No concerns reported THRIVE Score: 0 AUDIT C Alcohol Use Questionnaire (AUDIT-C) 2. How many drinks containing alcohol do you have on a typical day when you are drinking?: 1 or 2 3. How often do you have six or more drinks on one occasion?: Never Total Score: 0 RITA-7 AMB Questionnaire RITA-7 Date RITA - 7 assessed: 04/16/24 Source: Developed by Drs. Shalom Russell, ModestaMike Lowery and colleagues, with an educational padilla from [employer]. Physical exam (Primary Care) Vital Signs: Last Vital Signs Temp 97.2 F 09/10/25 14:48 Pulse 58 09/10/25 14:48 Resp 12 09/10/25 14:48 BP 101/68 09/10/25 14:48 Pulse Ox 99 09/10/25 14:48 Oxygen Delivery Method Room Air 09/10/25 14:48 BMI result Body Mass Index 20.5 Tobacco/Smoking Status: Tobacco use Status Tobacco use date assessed 09/10/25 09/10/25 14:50 Patient Tobacco Use Status Never used Tobacco 09/10/25 14:50 e-Cigarette/Vaping Use Never Used 09/10/25 14:50 Thrive Assessment: Date of Thrive Assessment Date Thrive assessed 02/08/25 09/10/25 14:50 Currently or been in a relationship where the following occur: No concerns reported Office Procedures Cerumen Removal From which ear canal was the cerumen removed: right Removal: irrigation Notes: patient tolerated procedure well, no complications and ear canal clear 81540-Fzm Irrigation/Lavage Coding Level of Care Code Est Pt Level 3 (33252) Complex EM visit Add On G2211 Diagnoses Viral URI with cough J06.9 Impacted cerumen, right ear H61.21 CPT Codes Office Procedure - CPT: 34415-Ybv Irrigation/Lavage ([id number]) Assessment & Plan Assessment & Plan (1) Viral URI with cough: Code(s): J06.9 - Acute upper respiratory infection, unspecified (2) Impacted cerumen, right ear: Code(s): H61.21 - Impacted cerumen, right ear Plan . Medications: New benzonatate 100 mg PO TID PRN 30 caps 1RF cough 10 days
[2025-09-10 14:48] VITALS: BP 101/68; PULSE 58; RESP 12; TEMP 36.2; O2SAT 99; BMI 20.5
--- OUTSIDE RECORDS SUMMARY | 2025-09-10 15:10 | XMS_ITS | Encounter Summary ---
Author Organization [facility] Address [address] [place], [place] [id number] Phone Care Team Providers Care Steam Trap Worker Name Role Phone Unavailable Primary Care Provider Unavailabl e Encounter Details Date Type Department Care Team (Late st Contact Info) Description 03/16/2011 Documentation [facility] [place] Family Medicine [address] [place] [address] Family Medicine, Physician [facility] [place] [address] Social History Tobacco Use Types Packs/Day Years Used Date Smoking Tobacco: Never Assessed Comments Unknown Sex and Gender Information Value Date Recorded Sex Assigned at Not on file Legal Sex Female 4:40 PM EDT Gender Identity Not on file Sexual Orientation Not on file documented as of this encounter Plan of Treatment Not on file documented as of this encounter Visit Diagnoses Not on filedocumented in this encounter
--- OUTSIDE RECORDS SUMMARY | 2025-09-10 15:11 | XMS_ITS | Encounter Summary ---
Author Organization [facility] Address [address] [place], [place] [address] Phone Care Team Providers Care Mechanical Service Technician Name Role Phone Unavailable Primary Care Provider Unavailabl e Encounter Details Date Type Department Care Team (Late st Contact Info) Description 06/27/2011 Documentation [facility] [place] Family Medicine [address] [place] [address] Family Medicine, Physician [facility] [place] [address] Social History Tobacco Use Types [...]
--- OUTSIDE RECORDS SUMMARY | 2025-09-10 15:11 | XMS_ITS | Encounter Summary ---
Author Organization [facility] Address [address] [place], [place] [id number] Phone Care Team Providers Care Wallpaper Printer Helper Name Role Phone Unavailable Primary Care Provider Unavailabl e Encounter Details Date Type Department Care Team (Late st Contact Info) Description 05/29/2011 [place] [facility] [place] [address] [place] [address] Family Medicine, Physician [facility] [place] [address] Social History Tobacco Use Types [...]
--- OUTSIDE RECORDS SUMMARY | 2025-09-10 15:11 | XMS_ITS | Encounter Summary ---
Author Organization [facility] Address [address] [place], [place] [phone] Phone Care Team Providers Care Heavy Equipment Sales Associate Name Role Phone Unavailable Primary Care Provider Unavailabl e Encounter Details Date Type Department Care Team (Late st Contact Info) Description 06/27/2011 [place] [facility] [place] [address] [place] [address] Family Medicine, Physician [facility] [place] [address] Social History Tobacco Use Types [...]
--- OUTSIDE RECORDS SUMMARY | 2025-09-10 15:11 | XMS_ITS | Patient Health Record ---
Author Organization [facility] Address [address] [address] Support Name Relationship Address Phone INA [place]ING[place] Guarantor Unknown [phone] Reason For Referral No Information Medications Medication SIG (Take, Route, Frequency, Duration) Notes Start Date End Date Status Loestrin 11/30 (21) 1 MG 1 ORAL daily; Duration: -3 Frandy-MJ 10/03/2011 Active Plan Of Treatment No Information
--- OUTSIDE RECORDS SUMMARY | 2025-09-10 15:11 | XMS_ITS | Encounter Summary ---
Author Organization [facility] Address [address] [place], [place] [address] Phone Care Team Providers Care Aircraft Structural Design Engineer Name Role Phone Unavailable Primary Care Provider Unavailabl e Encounter Details Date Type Department Care Team (Late st Contact Info) Description 06/27/2011 Documentation [facility] [place] [address] [place] [address] Family Medicine, Physician [facility] [place] [address] Social History Tobacco Use Types [...]
--- OUTSIDE RECORDS SUMMARY | 2025-09-10 15:11 | XMS_ITS | Clinical Summary ---
Author Organization [facility] Address [address] [place], [place] [address] Phone Care Team Providers Care Teacher Early Childhood Development Name Role Phone Unavailable Primary Care Provider Unavailabl e Immunizations Immunization Administration Dates Next Due DTP 09/20/1994, 1,03/14/1990,01/01,1989 HPV, Quadrivalent 07/08/2008,10/06/2007,08/04/20 07 Hep B, ped/adol 06/11/2000,07/06/1999,04/25/1999 Hib (PRP-T) 12/08/1990 Influenza Split 06/26/2011 MMR 09/20/1994,12/08/1990 Meningococcal Conj (Menactra) MCV4P 08/04/2007 OPV 09/20/1994, 1,01/01/1990,10/29 Td (adult) (MBL), 2 Lf tetan us toxoid, PF, adsorbed 03/18/2002 Tdap 11/24/2008 Unknown Vaccine 10/10/1994,09/10/1990 Family History Relation Name Status Comments Brother 1 Alive Brother: Alive and well, Alive and well Brother 2 Alive Brother: Alive and well, Alive and well Father Alive Father: elevate d cholestrol Mother Alive Mother: Alive a nd well,strabismus Social History Tobacco Use Types Packs/Day Years Used Date Smoking Tobacco: Never Comments:Never smoker Comments Unknown Sex and Gender Information Value Date Recorded Sex Assigned at Not on file Legal Sex Female 4:40 PM EDT Gender Identity Not on file Sexual Orientation Not on file Last Filed Vital Signs Vital Sign Reading Time Taken Comments Blood Pressure 112/60 01/11/2012 12:00 AM EST Pulse 80 01/11/2012 12:00 AM EST Temperature 36.3 C (97.4 F) 01/11/2012 12:00 AM EST Respiratory Rate - - Oxygen Saturation 99% 05/31/2010 12:00 AM EDT Inhaled Oxygen Concentration - - Weight 57.6 kg (127 lb) 01/11/2012 12:00 AM EST Height 163.3 cm (5' 4.3 ) 01/11/2012 12:00 AM ES T Body Mass Index 21.6 01/11/2012 12:00 AM EST Plan of Treatment Health Maintenance Due Date Last Done Comments Varicella Vaccines (1 of 2 - 13+ 2-dose series) 2002 DTaP,Tdap,and Td Vaccines (7 - Td or Tdap) 11/24/2018 11/24/2008, 03/18/2002, 09/20/1994, Additional history exists Influenza Vaccines (#1) 2025 06/26/2011 COVID-19 Vaccine ( - season) 2025 HIB Vaccines Completed 12/08/1990 IPV Vaccines Completed 09/20/1994, 04/1991, 01/01/1990, Additional history exists MMR Vaccines Completed 09/20/1994, 12/08/1990 Hepatitis B Vaccines Completed 06/11/2000, 07/06/1999, 04/25/1999 Meningococcal Vaccine Completed 08/04/2007 HPV Vaccines Completed 07/08/2008, 09/12, 08/04/2007 Hepatitis A Vaccines Aged Out No long er eligible based on patient's age to complete this topic Men B Vaccine Aged Out No longer elig ible based on patient's age to complete this topic Pneumococcal Vaccine Aged Out No long er eligible based on patient's age to complete this topic Procedures * Due to [place] law, this organization might not be sharing sensitive test results. Procedure Name Priority Date/Time Associated Diagnosis Comments CHLAMYDIA AND GONORRHEA, AMPLIFIED Routine 05/25/2011 6:26 AM EDT from Last 3 Months or Most Recently Relevant to Health Maintenance Results * Due to [place] law, this organization might not be sharing sensitive test results. * Chlamydia and Gonorrhoea, Amplified (05/25/2011 6:26 AM EDT) URINE GC AMP PROBE NEGATIVE [facility] Comment: NO NEISSERIA GONORRHOEAE RNA DETECTED IN THIS PATIENT'S SAMPLE. (REFERENCE RANGE/NORMAL VALUE: NOT DETECTED) NOTE: THIS TEST USES SHED WORKERS SUPERVISOR MEDIATED AMPLIFICATION METHOD TO DETECT rRNA FROM C.TRACHOMATIS AND N.GONORRHOEAE. A NEGATIVE RESULT DOES NOT PRECLUDE INFECTION WITH C.TRACHOMATIS OR N.GONORRHOEAE BECAUSE RESULTS ARE DEPENDENT ON ADEQUATE SPECIMEN COLLECTION, ABSENCE OF INHIBITORS, AND SUFFICIENT rRNA TO BE DETECTED. THE APTIMA COMBO2 ASSAY IS NOT INTENDED FOR THE EVALUATION OF SUSPECTED SEXUAL ABUSE OR FOR OTHER MEDICO LEGAL INDICATIONS. IS TRUE FOR ALL NON CULTURE METHODS, A POSITIVE SPECIMEN OBTAINED FROM A PATIENT AFTER THERAPEUTIC TREATMENT CANNOT BE INTERPRETED INDICATING THE PRESENCE OF VIABLE C.TRACHOMATIS OR N.GONORRHOEAE. THERAPEUTIC FAILURE OR SUCCESS CANNOT BE DETERMINED WITH THE APTIMA COMBO2 ASSAY SINCE NUCLEIC ACID MAY PERSIST FOLLOWING APPROPRIATE ANTIMICROBIAL THERAPY. A NEGATIVE URINE RESULT FOR A PATIENT WHO IS CLINICALLY SUSPECTED OF HAVING A CHLAMYDIAL OR GONOCOCCAL INFECTION DOES NOT RULE OUT THE PRESENCE OF C.TRACHOMATIS OR N.GONORRHOEAE IN THE UROGENITAL TRACT. TESTING OF AN ENDOCERVICAL(FEMALE) OR URETHRAL(MALE) SPECIMEN IS RECOMMENDED IF THERE IS HIGH CLINICAL SUSPICION OF INFECTION. PRESERVCYT LIQUID PAP AND URINE SAMPLING ARE NOT DESIGNED TO REPLACE CERVICAL EXAMS AND ENDOCERVICAL SAMPLES FOR DIAGNOSIS OF FEMALE UROGENITAL INFECTIONS. PATIENTS MAY HAVE CERVICITIS, URETHRITIS, URINARY TRACT INFECTIONS, OR VAGINAL INFECTIONS DUE TO OTHER CAUSES OR CONCURRENT INFECTIONS WITH OTHER AGENTS. URINE CHLAMYDIA AMP PROBE NEGATIVE [facility] Comment: NO CHLAMYDIA TRACHOMATIS RNA DETECTED IN THIS PATIENT'S SAMPLE. (REFERENCE RANGE/NORMAL VALUE: NOT DETECTED) 05/25/2011 6:26 AM EDT Narrative [facility] - 05/25/2011 6:26 AM EDT URINE CHLAMYDIA GC AMP PROBE us Leanne Mosher MD LAB MICROBIOLOGY - GENERAL ORDER ROCHELLE Final Result [facility] [address] [place] [address], [place] from Last 3 Months or Most Recently Relevant to Health Maintenance
--- OUTSIDE RECORDS SUMMARY | 2025-09-10 15:11 | XMS_ITS | Encounter Summary ---
Author Organization [facility] Address [address] [place], [place] [phone] Phone Care Team Providers Care Nuclear Plant Construction Worker Name Role Phone Unavailable Primary Care Provider Unavailabl e Encounter Details Date Type Department Care Team (Late st Contact Info) Description 12/01/2015 [place] [facility] [place] [address] [place] [address] Family Medicine, Physician [facility] [place] [address] Social History Tobacco Use Types [...]
--- OUTSIDE RECORDS SUMMARY | 2025-09-10 15:11 | XMS_ITS | Encounter Summary ---
Author Organization [facility] Address [address] [place], [place] [phone] Phone Care Team Providers Care Station Operator Name Role Phone Unavailable Primary Care Provider Unavailabl e Encounter Details Date Type Department Care Team (Late st Contact Info) Description 05/29/2011 Documentation [facility] [place] Family Medicine [address] [place] [address] Family Medicine, Physician [facility] [place] [address] Social History Tobacco Use Types [...]
--- OUTSIDE RECORDS SUMMARY | 2025-09-10 15:11 | XMS_ITS | Clinical Summary ---
Author Organization [facility] Address [address] [id number] Phone Care Team Providers Care Bagging Salvager Name Role Phone Unavailable Primary Care Provider Unavailabl e Medications dextroamphetami ne-amphetamine (ADDERALL) 10 mg Tab tablet ADDERALL 10 MG TABS Active clonazePAM (KLONOPIN) 1 MG tablet KLONOPIN 1 MG TABS Active escitalopram oxalate (LEXAPRO) 10 MG tablet LEXAPRO 10 MG TABS Active verapamiL (CALAN-SR) 120 MG CR tablet VERAPAMIL HCL ER 120 MG CR-TABS 2 Active Active Problems Problem Noted Date Diagnosed Date Paroxysmal supraventricular tachycardia 05/08/20 23 Overview (05/08/2023): SVT Neoplasm of uncertain behavior of skin 3 Hx of atypical nevus 05/08/2023 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 Purif ied Surface Antigen) 06/26/2011 MMR 09/20/1994,12/08/1990 Meningococcal ACWY, unspecif ied formulation 08/07/2007 Meningococcal MCV4P 08/04/2007 Polio - OPV 09/20/1994, 1,01/01/1990,10/29 Td (adult),2 Lf Tetanus Toxo id, PF, Adsorbed 03/18/2002 Td, unspecified formulation 11/24/2008 Tdap 11/24/2008 Unknown Vaccine Or Immune Globulin 10/10/1994, Social History Tobacco Use Types Packs/Day Years Used Date Smoking Tobacco: Never Assessed Education Answer Date Recorded Are you interested in more education? Not on oleg e 04/19/2023 Are you concerned about learning? Not on file 04/19/2023 No 04/19/2023 No 04/19/2023 Digital Access Answer Date Recorded No 04/19/2023 No 04/19/2023 Reliable internet access at home? Not on file 04/19/2023 Device with a working camera? Not on file Comments Unknown Sex and Gender Information Value Date Recorded Sex Assigned at Not on file Legal Sex Female 9:05 PM EDT Gender Identity Not on file Sexual Orientation Not on file Last Filed Vital Signs Vital Sign Reading Time Taken Comments Blood Pressure 125/86 09/03/2022 7:40 AM EDT Pulse 80 09/03/2022 7:40 AM EDT Temperature - - Respiratory Rate - - Oxygen Saturation - - Inhaled Oxygen Concentration - - Weight 59 kg (130 lb) 09/03/2022 7:40 AM EDT Height 165.1 cm (5' 5 ) 11/16/2022 11:13 AM EST Body Mass Index 21.63 09/03/2022 7:40 AM EDT Plan of Treatment Health Maintenance Due Date Last Done Comments DEPRESSION SCREENING 2001 SMOKING Hx and SMOKELESS TOBACCO SCREENING 2002 HEPATITIS C SCREENING 2007 HIV ONE-TIME SCREENING (18-6 5 YEARS) 2007 PAP SMEAR 2010 Adult Td,Tdap Booster 11/24/2018 11/24/2008 , 11/24/2008, 03/18/2002 INFLUENZA VACCINE (#1) 2025 06/26/2011 COVID-19 VACCINE (2024-2 6 season) 2025 HIB VACCINES Completed 12/08/1990 MENINGOCOCCAL VACCINES (ACWY) Completed , 08/04/2007 HEPATITIS A VACCINES Aged Out No long er eligible based on patient's age to complete this topic MENINGOCOCCAL VACCINES (B) Aged Out N o longer eligible based on patient's age to complete this topic PNEUMOCOCCAL VACCINES (0-49 years) Aged Out No longer eligible b ased on patient's age to complete this topic Medical Devices Not on file Insurance [employer] PPO Additional Source Comments The information contained in this document represents components of the legal health record. It is not the complete legal health record.[facility]
--- OUTSIDE RECORDS SUMMARY | 2025-09-10 15:11 | XMS_ITS | Encounter Summary ---
Author Organization [facility] Address [address] [place] [id number] Phone Care Team Providers Care Operating Manager Name Role Phone Unavailable Primary Care Provider Unavailabl e Encounter Details Date Type Department Care Team (Late st Contact Info) Description 06/27/2017 Conversion Encounter [facility] - [address] [id number] Social History Tobacco Use Types Packs/Day Years [...]
== END 2025-09-10 16:43 | disposition home or self-care (01) ==
LOC: HO.HMCFM 14:42
PROVIDERS: PCP Physician Assistant; Visit Provider Nurse Practitioner Family
DX: J06.9 Acute upper respiratory infection, unspecified (principal); H61.21 Impacted cerumen, right ear

== ENCOUNTER → 2025-09-10 14:42 | Outpatient (BNVA) | payer BC, SELFPAY | PROVIDERS: PCP Physician Assistant; Visit Provider Nurse Practitioner Family | DX: R05.3 Chronic cough (principal); H61.21 Impacted cerumen, right ear; J06.9 Acute upper respiratory infection, unspecified | CPT/HCPCS: 69209 ==